=== PATIENT | male | born 1985 | race Hispanic/Latino ===

== ENCOUNTER 2017-08-27 23:51 | Emergency (ER) | payer SELFPAY ==
[2017-08-28] MEDS ORDERED: ASPIRIN TABLET 325 MG TAB PO ONE (00:19)
[2017-08-28] MEDS ORDERED: ALPRAZolam 0.25 MG TAB PO ONE (00:19)
[2017-08-28] MEDS ORDERED: ALUMINUM & MAGNESIUM HYDROXIDE 30 ML UD PO ONE (00:19)
[2017-08-28] MEDS ORDERED: predniSONE 20 MG TAB PO ONE (00:21)
[2017-08-28 00:27] VITALS: O2SAT 97
[2017-08-28] MEDS ORDERED: SODIUM CHLORIDE 0.9% 1000ML 500 ML IVS ONE ×2 (00:27→01:28)
--- NOTE | 2017-08-28 01:06 | RAD ---
EXAM: PA and LATERAL CHEST RADIOGRAPHS CLINICAL INDICATION: Shortness of breath. COMPARISON: None. FINDINGS: Cardiac size and pulmonary vasculature are normal. Lungs are clear. No pleural effusions or pneumothorax. No free peritoneal gas layering under the hemidiaphragms. No suspicious hilar or mediastinal lymphadenopathy. Bones are intact on these two views. IMPRESSION: Normal chest radiographs. Electronically signed by: Basilio Arevalo MD 08/28/2017 1:04 AM CDT
[2017-08-28] MEDS ORDERED: IPRATROPIUM/ALBUTEROL 3 ML VIAL NEB ONE (01:49)
--- NOTE | 2017-08-28 02:38 | ED.PDOC ---
History of Present Illness - General Chief Complaint: Respiratory Problem Stated Complaint: shortness of breath and chest pain Time Seen by Provider: 08/28/17 00:11 Source: patient Exam Limitations: no limitations - History of Present Illness Initial Comments: the patient is a 31-year-old male presenting to the emergency room secondary to shortness of breath and mild associated chest pressure. This started about 3 hours prior to arrival. The patient has taken 6 rounds of his inhaler as he is an asthmatic. His lungs actually sound clear on arrival here. The patient is very anxious and does report that he does have an anxiety issue. The patient has been outside all day in the heat. Additionally he has been doing yard work all day which is not normally something he does all day. He reports that earlier in the day he developed a sore throat and a runny nose. He does report breathing tightness up higher in his chest and in his neck. Exam shows possibly some mild swelling of the uvula. Nares are boggy with clear rhinorrhea. Chest discomfort is minimal. No history of any cardiac or lung problems. No history of angioedema. He does apparently have some history of reflux but has not been taking any medications. He did drink some alcohol around the time of onset of discomfort.in addition to alcohol intake he did take some cough and cold medication before coming up. It is mildly drowsy as a result. Timing/Duration: 1-3 hours Severity: moderate Improving Factors: nothing Worsening Factors: nothing Associated Symptoms: chest pain, diaphoresis, malaise, shortness of breath Allergies/Adverse Reactions: Allergies NO KNOWN ALLERGY Allergy (Verified 08/28/17 00:12) Home Medications: Ambulatory Orders Albuterol Inhaler [Ventolin Hfa Inhaler] 1 puff INH 08/28/17 Montelukast [Singulair] 10 mg PO DAILY #30 tab 08/28/17 Review of Systems - Review of Systems Constitutional: States: malaise EENTM: States: nose congestion, throat pain Respiratory: States: short of breath, wheezing Cardiology: States: no symptoms reported Gastrointestinal/Abdominal: States: no symptoms reported Genitourinary: States: no symptoms reported Musculoskeletal: States: no symptoms reported Skin: States: no symptoms reported Neurological: States: anxiety Endocrine: States: no symptoms reported All other Systems: No Change from Baseline Past Medical History (General) - Patient Medical History Hx Asthma: Yes Hx Congestive Heart Failure: No Hx Hypertension: Yes Surgical History: no surgical history - Vaccination History Hx Tetanus, Diphtheria Vaccination: Yes - 2014 Hx Influenza Vaccination: No Hx Pneumococcal Vaccination: No - Social History Hx Tobacco Use: Yes - occ Hx Alcohol Use: Yes - Triage Comment ED Triage Comment: Pt breathing shallow. REports "hurts to deep breath". Pt appears drowsy, possibly due to cough medication. Lungs sound clear but diminished. HRRR. Pt is slightly diaphoretic. Pt report feeling anxious. Family Medical History - Family History Father Hx Family Diabetes: Yes Mother Hx Family Diabetes: Yes Physical Exam - Physical Exam General Appearance: Alert, Anxious, Other - the patient has very poor eye contact. Eye Exam: bilateral normal Ears, Nose, Throat: hearing grossly normal, nasal congestion, other - mild posterior or opharyngeal swelling Neck: full range of motion, supple Respiratory: lungs clear, normal breath sounds, no respiratory distress, no accessory muscle use Cardiovascular/Chest: normal peripheral pulses, regular rate, rhythm, no edema Peripheral Pulses: radial,right: 2+, radial,left: 2+, dorsalis pedis,right: 2+, dorsalis pedis,left: 2+ Gastrointestinal/Abdominal: non tender, soft Rectal Exam: deferred Back Exam: normal inspection, no CVA tenderness Extremity: normal range of motion, non-tender, normal inspection, no pedal edema , normal capillary refill 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, no motor/sensory deficits, alert, oriented x 3, other - he is very anxious Skin Exam: normal color Comments: Vital Signs - 24 hr 08/28/17 08/28/17 08/28/17 00:11 00:19 01:12 Temperature 97.7 F Pulse Rate 77 79 Pulse Rate [ 77 70 72 left] Respiratory 22 20 22 Rate Blood Pressure 190/95 132/79 [left] O2 Sat by Pulse 97 97 Oximetry 08/28/17 02:10 Temperature 98.2 F Pulse Rate Pulse Rate [ 82 left] Respiratory 15 Rate Blood Pressure 115/68 [left] O2 Sat by Pulse 97 Oximetry Progress - Progress Progress: 08/28/17 06:01 the patient is a 31-year-old male presenting to the emergency room primarily due to shortness of breath but also some associated runny nose and sore throat and anxiety associated with all that. It is likely symptoms are contributed to by his asthma and allergies as well as mild heat exhaustion and anxiety. repeat cardiac enzymes show no evidence of any rise. He is breathing easily at this time. He has received a dose of prednisone. The patient will be written for Singulair 4 daily use for the next month. He can see how this affects his allergies and asthma. He needs to keep himself well hydrated and avoid overheating. he was given a liter of IV fluids here tonight. he needs to minimize alcohol intake for the next week or 2. He should follow-up with his primary care doctor later this coming week. ER warnings were given for any significant worsening. - Results/Orders Results/Orders: Laboratory Tests 08/28/17 08/28/17 08/28/17 00:10 00:10 00:10 WBC 9.4 RBC 5.75 Hgb 17.0 Hct 48.3 MCV 84.1 MCH 29.6 MCHC 35.2 RDW 14.3 Plt Count 187 MPV 7.9 Absolute Neuts (auto) Not Reportable Absolute Lymphs (auto) Not Reportable Absolute Monos (auto) Not Reportable Absolute Eos (auto) Not Reportable Neutrophils % Not Reportable Neutrophils % (Manual) 39.0 L Lymphocytes % Not Reportable Lymphocytes % (Manual) 54.0 Monocytes % Not Reportable Monocytes % (Manual) 6.0 Eosinophils % Not Reportable Basophils % Not Reportable Basophils 1.0 Platelet Estimate Normal Normal RBC Morphology Normal rbc morph PT INR PTT (SP) 27.3 D-Dimer, Quantitative < 230 Sodium 137 Potassium 3.6 Chloride 101 Carbon Dioxide 27 Anion Gap 12.6 BUN 13 Creatinine 0.51 L BUN/Creatinine Ratio 25.5 H Random Glucose 98 Serum Osmolality 273.9 L Calcium 8.7 Magnesium 2.1 Total Bilirubin 1.5 H AST 72 H ALT 83 H Alkaline Phosphatase 92 Creatine Kinase 294 H* CK-MB (CK-2) 2.3 CK-MB (CK-2) % Not Reportable Troponin I < 0.02 B-Natriuretic Peptide < 5.0 Serum Total Protein 7.4 Albumin 4.4 Globulin 3.0 Albumin/Globulin Ratio 1.5 Group A Strep Rapid 08/28/17 08/28/17 08/28/17 00:10 00:35 05:25 WBC RBC Hgb Hct MCV MCH MCHC RDW Plt Count MPV Absolute Neuts (auto) Absolute Lymphs (auto) Absolute Monos (auto) Absolute Eos (auto) Neutrophils % Neutrophils % (Manual) Lymphocytes % Lymphocytes % (Manual) Monocytes % Monocytes % (Manual) Eosinophils % Basophils % Basophils Platelet Estimate Normal RBC Morphology PT 11.5 INR 0.990 PTT (SP) D-Dimer, Quantitative Sodium Potassium Chloride Carbon Dioxide Anion Gap BUN Creatinine BUN/Creatinine Ratio Random Glucose Serum Osmolality Calcium Magnesium Total Bilirubin AST ALT Alkaline Phosphatase Creatine Kinase 272 H* CK-MB (CK-2) 2.3 CK-MB (CK-2) % Not Reportable Troponin I < 0.02 B-Natriuretic Peptide Serum Total Protein Albumin Globulin Albumin/Globulin Ratio Group A Strep Rapid Negative hest x-ray results appear to be within normal limits. EKG shows normal sinus rhythm at a rate of 77 bpm. There is very mild widening of the QRS complex as well as an incomplete right bundle branch block. He does have LVH. There is very mild J-point elevation in anterior leads consistent with LVH. normal corrected QT interval. Departure - Departure Clinical Impression: Asthma exacerbation, Anxiety, generalized Heat exhaustion Qualifiers: Encounter type: initial encounter Qualified Code(s): T67.5XXA - Heat exhaustion , unspecified, initial encounter Disposition: Discharge to Home or Self Care Condition: Fair Departure Forms: ED Discharge - Pt. Copy, Patient Portal Self Enrollment Instructions: DI for Asthma -- Adult, DI for Heat Exhaustion and Heat Stroke Diet: regular diet Activity: increase activity as tolerated Prescriptions: Montelukast [Singulair] 10 mg PO DAILY #30 tab Home Medications: Ambulatory Orders Albuterol Inhaler [Ventolin Hfa Inhaler] 1 puff INH 08/28/17 Montelukast [Singulair] 10 mg PO DAILY #30 tab 08/28/17 Additional Instructions: the patient is a 31-year-old male presenting to the emergency room primarily due to shortness of breath but also some associated runny nose and sore throat and anxiety associated with all that. It is likely symptoms are contributed to by his asthma and allergies as well as mild heat exhaustion and anxiety. repeat cardiac enzymes show no evidence of any rise. He is breathing easily at this time. He has received a dose of prednisone. The patient will be written for Singulair 4 daily use for the next month. He can see how this affects his allergies and asthma. He needs to keep himself well hydrated and avoid overheating. he was given a liter of IV fluids here tonight. he needs to minimize alcohol intake for the next week or 2. He should follow-up with his primary care doctor later this coming week. ER warnings were given for any significant worsening.
[2017-08-28 06:23] VITALS: BP 119/75; TEMP 97.8
== END 2017-08-28 06:23 | disposition home or self-care (01) ==
LOC: ER 23:51
DX: J45.901 Unspecified asthma with (acute) exacerbation (principal); F41.9 Anxiety disorder, unspecified; I10 Essential (primary) hypertension; I45.10 Unspecified right bundle-branch block; T67.5XXA Heat exhaustion, unspecified, initial encounter; X30.XXXA Exposure to excessive natural heat, initial encounter
CPT/HCPCS: 36415; 71046; 80053; 82550; 82553; 83735; 83880; 84484; 85025; 85379; 85610; 85730; 87070; 87880; 93005; 94640; J7030; J7512; J7620

== ENCOUNTER 2017-09-11 22:23 | Emergency (ER) | payer SELFPAY ==
[2017-09-11 22:41] VITALS: TEMP 99
[2017-09-11] MEDS ORDERED: SODIUM CHLORIDE 0.9% 1000ML 1,000 ML IVS ONE (23:07)
[2017-09-11] MEDS ORDERED: ONDANSETRON INJ 4 MG/2 ML VIAL IV ONE (23:09)
[2017-09-11] MEDS ORDERED: FAMOTIDINE IV PREMIX 20 MG in PREMIX BAG 1 BAG IVPB ONE (23:09)
[2017-09-11] MEDS ORDERED: FAMOTIDINE IV PREMIX 50 ML IVPB ONE (23:13)
[2017-09-11] MEDS ORDERED: ALUM & MAG HYDROX-SIMETHICONE 30 ML, LIDOCAINE VISCOUS 2% 15 ML PO ONE ×2 (23:14)
[2017-09-11] MEDS ORDERED: LIDOCAINE HCL 2% (MOUTH-THROAT) 15 ML UD ONE (23:20)
[2017-09-11] MEDS ORDERED: ALUM & MAG HYDROX-SIMETHICONE 30 ML UD ONE (23:20)
[2017-09-11] MEDS ORDERED: KCL 20MEQ/WATER FOR INJ 100ML 20 MEQ in PREMIX BAG 1 BAG IVPB ONE (23:41)
[2017-09-11] MEDS ORDERED: POTASSIUM CHLORIDE 20 MEQ TAB PO ONE (23:41)
[2017-09-11 23:45] VITALS: O2SAT 98
[2017-09-12] MEDS ORDERED: KCL 20MEQ/WATER FOR INJ 100ML 100 ML IVPB ONE
--- NOTE | 2017-09-12 00:13 | ED.PDOC ---
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 He went to a hospital in [place] with the same symptoms 4 days ago. He was diagnosed with abdominal pain & hypokalemia. His K was 2.6. He was given IVF, K & discharged home. He is an alcoholic who recently started drinking again. After the discharge from [facility] he started drinking again & subsequently hasn't eaten in 3 days. He returned from [place] Tuesday. He last drank alcohol Tuesday morning & has been out in the heat all day. He began vomiting this evening & his roommate called the patient's brother to come check on him. His brother then made him come in to be checked. Abdominal Pain Onset Location: RUQ, LUQ - , epigastric Pain Radiation: other - lower chest Quality: mild, sharpness, stabbing, vague, waxing/waning Timing/Duration: other - started 3 days ago Improving Factors: nothing Worsening Factors: nothing Associated Symptoms: chest pain - lower, nausea/vomiting, other - sour taste in his mouth Review of Systems - Review of Systems Constitutional: States: no symptoms reported, see HPI EENTM: States: no symptoms reported, see HPI Respiratory: States: no symptoms reported Cardiology: States: see HPI Gastrointestinal/Abdominal: States: see HPI Genitourinary: States: no symptoms reported Musculoskeletal: States: no symptoms reported Skin: States: no symptoms reported Neurological: States: no symptoms reported Hematologic/Lymphatic: States: no symptoms reported All other Systems: No Change from Baseline Past Medical History (General) - Patient Medical History Hx Asthma: Yes Hx Congestive Heart Failure: No Hx Hypertension: Yes Hx Other PMH: Yes - alcoholism (he has been to rehab) Surgical History: no surgical history - Vaccination History Hx Tetanus, Diphtheria Vaccination: Yes - 2015 Hx Influenza Vaccination: No Hx Pneumococcal Vaccination: No Immunizations Up to Date: No - Social History Hx Tobacco Use: Yes - occ Hx Alcohol Use: Yes - Triage Comment ED Triage Comment: states abdominal pain, not eating for past three days but has been drinking. Appears drowsy, slow to respond Family Medical History - Family History Father Hx Family Diabetes: Yes Mother Hx Family Diabetes: Yes Physical Exam - Physical Exam General Appearance: Alert, Comfortable, No apparent distress Eyes, Ears, Nose, Throat Exam: other - moist mucosa Neck: non-tender, full range of motion, supple, normal inspection Respiratory: lungs clear, normal breath sounds, no respiratory distress Cardiovascular/Chest: regular rate, rhythm, no edema, no gallop, no JVD, no murmur, tachycardia Peripheral Pulses: Other - CR 2 seconds Gastrointestinal/Abdominal: normal bowel sounds, soft, no organomegaly, no pulsatile mass, tenderness - mild epigastric, RUQ & LUQ Extremity: normal inspection, no pedal edema, normal capillary refill Neurologic: alert, normal mood/affect, oriented x 3 Skin Exam: normal color, warm/dry, other - poor turgor Special Observations: Smiling Progress - Progress Progress: 09/12/17 00:11 Feeling somewhat better after meds. Tolerating applesauce but he still doesn't want to eat. First liter of fluid still infusing. Potassium is being repleted. 09/12/17 01:38 Continuing to improve. Tolerating PO. HR 87. - EKG/XRAY/CT EKG: Sinus, Tachy, no ST T wave changes Comments: rate 107; incomplete RBBB, u wave, normal axis, normal ST Departure - Departure Clinical Impression: Hypokalemia, Alcohol abuse Gastritis Qualifiers: Gastritis type: alcoholic Chronicity: acute Gastritis bleeding: without bleeding Qualified Code(s): K29.20 - Alcoholic gastritis without bleeding Time of Disposition: 02:01 Disposition: Discharge to Home or Self Care Condition: Fair Departure Forms: Patient Portal Self Enrollment, ED Discharge - Pt. Copy Instructions: DI for Abdominal Pain-Adult, DI for Hypokalemia, DI for Alcohol Abuse and Alcoholism Diet: bland diet Prescriptions: Famotidine 20 mg PO DAILY #30 tab Ondansetron [Zofran Odt] 4 mg PO Q4H PRN #10 tab PRN Reason: Vomiting Potassium Chloride Tab [K-Dur] 20 meq PO DAILY 2 Days #2 tab Home Medications: Ambulatory Orders Albuterol Inhaler [Ventolin Hfa Inhaler] 1 puff INH 08/28/17 Montelukast [Singulair] 10 mg PO DAILY #30 tab 08/28/17 Famotidine 20 mg PO DAILY #30 tab 09/12/17 Ondansetron [Zofran Odt] 4 mg PO Q4H PRN #10 tab 09/12/17 Potassium Chloride Tab [K-Dur] 20 meq PO DAILY 2 Days #2 tab 09/12/17
[2017-09-12] MEDS ORDERED: SODIUM CHLORIDE 0.9% 1000ML 1,000 ML IVS ONE (01:15)
[2017-09-12 01:45] VITALS: BP 126/81
== END 2017-09-12 02:47 | disposition home or self-care (01) ==
LOC: ER 22:23
DX: E87.6 Hypokalemia (principal); K29.20 Alcoholic gastritis without bleeding; F10.10 Alcohol abuse, uncomplicated; R07.9 Chest pain, unspecified; Z87.891 Personal history of nicotine dependence
CPT/HCPCS: 36415; 80053; 82550; 82553; 83690; 84484; 85025; 93005; J2405; J3480; J3490; J7030